=== PATIENT | male | born 1945 | race Caucasian/White ===

== ENCOUNTER 2023-06-06 08:21 | Day surgery (SDC) | payer OTHER, SELFPAY ==
[2023-06-06] VITALS (13 sets, daily range): BP systolic 124–167; BP diastolic 65–95; BMI 24.4
[2023-06-06 08:54] LABS: Hematocrit 34.8 % (39.0-52.0); Hemoglobin 11.3 g/dL (13.0-18.0); Mean Corp Hgb Conc. 32.5 g/dL (33.0-37.0); Mean Corpuscular Hgb 31.2 pg (27.0-31.0); Mean Corpuscular Volume 96.1 fL (80.0-94.0); Mean Platelet Volume 8.6 fL (7.4-10.4); Platelet Count 419 10^3/uL (130-400); Red Blood Cell Count 3.62 10^6/uL (4.70-6.10); Red Cell Dist. Width 20.8 % (11.5-14.5); White Blood Cell Count 16.5 10^3/uL (4.8-10.8)
[2023-06-06] MEDS: PERIDEX 0.12% ORAL RINSE 15 ML PO (08:59)
[2023-06-06] MEDS: BACTROBAN NASAL 1 GRAM NASAL (08:59)
[2023-06-06 09:00] LABS: PT 13.4 Sec (11.4-14.6)
[2023-06-06] MEDS: NSS 500 IV (09:00)
[2023-06-06] MEDS: VANCOCIN 200 IV (09:00)
[2023-06-06 09:01] LABS: APTT 25.2 Sec (23.4-35.0)
[2023-06-06 09:02] LABS: Blood Urea Nitrogen 26 mg/dl (9-20); Carbon Dioxide 33 mmol/L (22-30); Chloride 100 mmol/L (98-107); Estimated Creatinine Clearance 86 ml/min; Glucose 78 mg/dl (70-99); Sodium 133 mmol/L (135-145); eGFR > 60.00
--- NOTE | 2023-06-06 10:34 | W.SUR.PREOP ---
Pre-Operative Surgical Note
-
I have examined this patient prior to the performance of the scheduled procedure.
The patient's condition is unchanged from the time of the current History and
Physical and the patient is able to undergo the scheduled procedure.
--- NOTE | 2023-06-06 12:22 | W.IMMPOSTOP ---
Surgical Immed Post Op Note
-
Primary Surgeon: Sang Wiley III, MD
Assisting Surgeon: Bon Hernández MD
Pre-op Diagnosis: c/f giant cell arteritis
Post-op Diagnosis: c/f giant cell arteritis
Procedure Performed: Bilateral temporal artery biopsy
Anesthesia Type: Light Sedation
Specimen / Cultures: bilateral temporal artery specimens (3-4cm in length each)
Estimated Blood Loss: 1cc
Complications: None
Operative Findings:
The temporal artery was identified by palpation and with doppler ultrasound and marked preoperatively. Patient was prepped and draped accordingly. A 6cm longitudinal incision was made on the left side and parietal-occipital fascia was divided to
expose the temporal artery. Proximal and distal control were achieved and a 4cm specimen of the temporal artery was removed and sent for biopsy. Surgical sites were inspected to confirm no active bleeding. Overlying subcutaneous tissue and skin were
closed using 3-0 and 4-0 running suture. The same procedure was performed on the patient's right.
--- NOTE | 2023-06-06 13:17 | OR.RPT ---
Operative Report
Operative Report
Date of Operation: 06/06/2023
Pre Op Diagnosis: Elevated inflammatory markers and symptom constellation suspicious for temporal arteritis
Post Op Diagnosis: Elevated inflammatory markers and symptom constellation suspicious for temporal arteritis
Procedure: BILATERAL temporal artery biopsies
Surgeon: Sang Wiley III, MD
Band Top Maker: Bno Hernández MD PGY-1
Anesthesia: Sedation/local
Complications: None
Estimated Blood Loss: Minimal
History and Indications for Procedure: 77-year-old male with elevated inflammatory markers and symptom constellation suspicious for temporal arteritis. We were asked to provide temporal artery biopsy for diagnostic purposes.
Procedure in Detail: Dedrick Madrigal was correctly identified and placed supine on the operating table. After adequate induction of anesthesia the hair overlying the bilateral temporal regions was shaved. The temporal pulses were palpated bilaterally
and appropriate skin incisions were marked over the temporal pulses bilaterally. The bilateral temporal regions were then prepped and draped in the usual sterile fashion. The patient received preoperative antibiotics. A time out procedure was
performed with the nursing and anesthesia staff confirming the patient's identity as well as the nature and laterality of the procedure.
Bilateral temporal artery biopsies were performed one at a time in the same manner as follows: Local anesthesia was infiltrated into the skin and subcutaneous tissue at the skin yeimy. A skin incision was made over the temporal skin yeimy.
Electrocautery and sharp dissection were used to expose the temporal artery. After adequate length of temporal artery had been exposed within the wound bed the proximal and distal ends were ligated with ties and small metal clips. The intervening
artery segment was transected proximally and distally and removed. The artery segment was identified according to laterality and passed off to the back table to be labeled and sent to pathology. The wound was then closely inspected for hemostasis
which was achieved. The wound was irrigated with saline solution.
Each wound was closed in layers. Skin glue was applied to each incision bilaterally.
The patient tolerated the procedure well and was taken to the recovery room in good condition.
Attestation: I was present and responsible for the entire procedure
Signed:
Sang Wiley III, MD
[facility] Vascular Surgery
[phone] (fqxy)
== END 2023-06-06 13:37 | disposition home or self-care (01) ==
LOC: CATH 08:21
PROVIDERS: ATTENDING PHYSICIAN Surgery Vascular Surgery; FAMILY PHYSICIAN Internal Medicine
DX: M31.6 Other giant cell arteritis (principal); E78.5 Hyperlipidemia, unspecified; I10 Essential (primary) hypertension
CPT/HCPCS: 37609; 88305; 80048; 85027; 85610; 85730; 86850; 86900; 86901; 88313

== ENCOUNTER → 2023-09-26 08:25 | Outpatient (REF) | payer OTHER, SELFPAY | LOC: RCS 08:25 | PROVIDERS: ATTENDING PHYSICIAN Internal Medicine; FAMILY PHYSICIAN Internal Medicine | DX: I10 Essential (primary) hypertension (principal); R60.0 Localized edema | CPT/HCPCS: 93306 ==

== ENCOUNTER 2023-12-25 08:50 | Outpatient (RCR) | payer OTHER, SELFPAY | END 2023-12-25 23:59 | disposition home or self-care (01) | LOC: ROT 08:50 | PROVIDERS: ATTENDING PHYSICIAN Internal Medicine | DX: G31.84 Mild cognitive impairment of uncertain or unknown etiology (principal); Z73.6 Limitation of activities due to disability | CPT/HCPCS: 92507; 92523; 97167; 97530; 97535 ==

== ENCOUNTER 2024-02-01 11:55 | Outpatient (RCR) | payer OTHER, SELFPAY | END 2024-02-01 23:59 | disposition home or self-care (01) | LOC: ROT 11:55 | PROVIDERS: ATTENDING PHYSICIAN Internal Medicine | DX: R41.89 Other symptoms and signs involving cognitive functions and awareness (principal); R47.02 Dysphasia; R41.841 Cognitive communication deficit; R26.89 Other abnormalities of gait and mobility; G31.84 Mild cognitive impairment of uncertain or unknown etiology | CPT/HCPCS: 92507; 97110; 97112; 97163; 97530; 97535 ==

== ENCOUNTER → 2024-03-07 08:16 | Outpatient (REF) | payer OTHER, SELFPAY | LOC: RAD 08:16 | PROVIDERS: ATTENDING PHYSICIAN Internal Medicine; FAMILY PHYSICIAN Internal Medicine | DX: M31.6 Other giant cell arteritis (principal); F03.90 Unspecified dementia, unspecified severity, without behavioral disturbance, psychotic disturbance, mood disturbance, and anxiety; E03.9 Hypothyroidism, unspecified; E78.5 Hyperlipidemia, unspecified; M81.0 Age-related osteoporosis without current pathological fracture | CPT/HCPCS: 77080 ==

== ENCOUNTER 2024-03-07 10:04 | Outpatient (RCR) | payer OTHER, SELFPAY | END 2024-03-07 23:59 | disposition home or self-care (01) | LOC: ROT 10:04 | PROVIDERS: ATTENDING PHYSICIAN Internal Medicine | DX: R41.89 Other symptoms and signs involving cognitive functions and awareness (principal); R47.02 Dysphasia; R41.841 Cognitive communication deficit; R26.89 Other abnormalities of gait and mobility; Z73.6 Limitation of activities due to disability; G31.84 Mild cognitive impairment of uncertain or unknown etiology; G30.9 Alzheimer's disease, unspecified; F02.80 Dementia in other diseases classified elsewhere, unspecified severity, without behavioral disturbance, psychotic disturbance, mood disturbance, and anxiety; M31.6 Other giant cell arteritis | CPT/HCPCS: 92507; 97110; 97112; 97116; 97530; 97535 ==

== ENCOUNTER → 2024-03-11 07:49 | Outpatient (REF) | payer OTHER, SELFPAY | LOC: RST 07:49 | PROVIDERS: ATTENDING PHYSICIAN Internal Medicine | DX: R05.3 Chronic cough (principal) | CPT/HCPCS: 74230; 92611 ==

== ENCOUNTER 2024-04-30 09:58 | Outpatient (RCR) | payer OTHER, SELFPAY | END 2024-04-30 23:59 | disposition home or self-care (01) | LOC: ROT 09:58 | PROVIDERS: ATTENDING PHYSICIAN Internal Medicine | DX: R26.89 Other abnormalities of gait and mobility (principal); Z73.6 Limitation of activities due to disability; M25.552 Pain in left hip; M54.9 Dorsalgia, unspecified; G30.9 Alzheimer's disease, unspecified; F02.80 Dementia in other diseases classified elsewhere, unspecified severity, without behavioral disturbance, psychotic disturbance, mood disturbance, and anxiety | CPT/HCPCS: 97110; 97112; 97530 ==

== ENCOUNTER 2024-06-04 10:56 | Outpatient (RCR) | payer OTHER, SELFPAY | END 2024-06-04 12:01 | disposition home or self-care (01) | LOC: ROT 10:56 | PROVIDERS: ATTENDING PHYSICIAN Internal Medicine | DX: R26.89 Other abnormalities of gait and mobility (principal); Z73.6 Limitation of activities due to disability; M25.552 Pain in left hip; M54.9 Dorsalgia, unspecified; G30.9 Alzheimer's disease, unspecified; F02.80 Dementia in other diseases classified elsewhere, unspecified severity, without behavioral disturbance, psychotic disturbance, mood disturbance, and anxiety | CPT/HCPCS: 97110; 97112; 97116; 97530 ==

== ENCOUNTER → 2024-09-20 17:06 | Outpatient (REF) | payer OTHER, SELFPAY | LOC: RAD 17:06 | PROVIDERS: ATTENDING PHYSICIAN Internal Medicine | DX: R30.0 Dysuria (principal) | CPT/HCPCS: 76857 ==

== ENCOUNTER 2024-10-29 12:58 | Outpatient (RCR) | payer OTHER, SELFPAY | END 2024-10-29 23:59 | disposition home or self-care (01) | LOC: RPT 12:58 | PROVIDERS: ATTENDING PHYSICIAN Internal Medicine | DX: R26.89 Other abnormalities of gait and mobility (principal); Z73.6 Limitation of activities due to disability; M54.9 Dorsalgia, unspecified; M62.81 Muscle weakness (generalized) | CPT/HCPCS: 97110; 97112; 97163; 97530 ==

== ENCOUNTER 2024-12-03 15:20 | Outpatient (RCR) | payer OTHER, SELFPAY | END 2024-12-03 23:59 | disposition home or self-care (01) | LOC: RPT 15:20 | PROVIDERS: ATTENDING PHYSICIAN Internal Medicine | DX: R26.89 Other abnormalities of gait and mobility (principal); Z73.6 Limitation of activities due to disability; M54.9 Dorsalgia, unspecified; M62.81 Muscle weakness (generalized) | CPT/HCPCS: 97110; 97112; 97116; 97530 ==

== ENCOUNTER 2025-01-03 09:01 | Outpatient (RCR) | payer OTHER, SELFPAY | END 2025-01-03 23:59 | disposition home or self-care (01) | LOC: RPT 09:01 | PROVIDERS: ATTENDING PHYSICIAN Internal Medicine | DX: R26.89 Other abnormalities of gait and mobility (principal); Z73.6 Limitation of activities due to disability; M54.9 Dorsalgia, unspecified; M62.81 Muscle weakness (generalized); Z91.81 History of falling | CPT/HCPCS: 97110; 97112; 97116; 97530 ==